=== PATIENT | female | born 1965 | race African-American/Black ===

== ENCOUNTER 2018-12-17 22:42 | Emergency (ER) | payer OTHER, MEDICARE ==
[2018-12-17 23:29] LABS: Absolute Lymphocytes (CBC) 2.1 K/uL (0.7-4.9); Absolute Monocytes 0.9 K/uL (0.1-1.3); Absolute Neutrophil 7.2 K/uL (1.8-8.0); Basophils % 0.6 % (0-1.3); Eosinophils % 0.5 % (0-4.4); Hematocrit 42.2 % (36.0-45.0); Lymphocytes % 20.2 % (15.3-44.8); MPV 11.4 fL (7.6-11.3); Monocytes % 8.4 % (3.3-12.3); RBC Red Blood Cell Count 4.76 M/uL (3.86-4.86)
[2018-12-17 23:54] LABS: Potassium 4.1 mmol/L (3.5-5.1)
[2018-12-17 23:54] LABS: Urine Blood TRACE (NEG); Urine Glucose NEGATIVE (NEG); Urine Protein 2+ (NEG); Urine pH 5.5 (5.0-7.0)
[2018-12-18 00:13] LABS: Urine Bacteria >50 /HPF (<20); Urine Culture Reflex Order NOT NEEDED; Urine RBC <5 /HPF (NONE SEEN)
[2018-12-18] MEDS ORDERED: KETOROLAC 30 MG/ML INJ ONE (00:13)
[2018-12-18] MEDS ORDERED: NA CHLORIDE 0.9% 1,000 ML ONE (00:13)
--- NOTE | 2018-12-18 00:56 | ER ---
Nurse's Notes [facility] Name: Kecia Moreno Age: 53 yrs Sex: Female : 1965 Arrival Date: 12/17/2018 Time: 22:45 Bed 7 Private MD: Diagnosis: Urinary tract infection, site not specified Presentation: 12/17 22:59 Presenting complaint: Patient states: lower abd cramps since 0400. pt denies N/V/D. ak1 Transition of care: patient was not received from another setting of care. Onset of symptoms was December 17, 2018. Risk Assessment: Do you want to hurt yourself or someone else? Patient reports no desire to harm self or others. Initial Sepsis Screen: Does the patient meet any 2 criteria? No. Patient's initial sepsis screen is negative. Does the patient have a suspected source of infection? No. Patient's initial sepsis screen is negative. Care prior to arrival: None. 22:59 Method Of Arrival: Ambulatory ak1 22:59 Acuity: TAMIKA 3 ak1 Triage Assessment: 23:01 General: Appears in no apparent distress. Behavior is calm, cooperative. Pain: ak1 Complains of pain in suprapubic area, right lower quadrant and left lower quadrant. EENT: No signs and/or symptoms were reported regarding the EENT system. Neuro: No deficits noted. Cardiovascular: No deficits noted. Respiratory: No deficits noted. GI: Abdomen is obese, Bowel sounds present X 4 quads. Reports lower abdominal pain, cramping, Patient currently denies diarrhea, nausea, vomiting. : No signs and/or symptoms were reported regarding the genitourinary system. Derm: No signs and/or symptoms reported regarding the dermatologic system. Musculoskeletal: No signs and/or symptoms reported regarding the musculoskeletal system. 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 - Social history:: Smoking status: Patient/guardian denies using tobacco. - Ebola Screening: : No symptoms or risks identified at this time. Screenin:03 Abuse screen: Denies threats or abuse. Denies injuries from another. Nutritional ak1 screening: No deficits noted. Tuberculosis screening: No symptoms or risk factors identified. Fall Risk None identified. Assessment: 23:03 GI: Abd is soft and non tender. ak1 23:04 Reassessment: Patient appears in no apparent distress at this time. No changes from ak1 previously documented assessment. Patient is alert, oriented x 3, equal unlabored respirations, skin warm/dry/pink. see triage assessment. 12/18 00:41 Reassessment: Patient appears in no apparent distress at this time. No changes from ak1 previously documented assessment. Patient and/or family updated on plan of care and expected duration. Pain level reassessed. Patient is alert, oriented x 3, equal unlabored respirations, skin warm/dry/pink. Vital Signs: 12/17 22:58 BP 135 / 107; Pulse 99; Resp 18; Temp 98.9(O); Pulse Ox 100% on R/A; Weight 170.1 kg ak1 (R); Height 5 ft. 5 in. (165.10 cm) (R); Pain 9/10; 12/18 00:02 BP 116 / 82; Pulse 95; Resp 18; Temp 98.8; Pulse Ox 100% on R/A; ak1 00:41 BP 111 / 76; Pulse 86; Resp 18; Pulse Ox 100% on R/A; ak1 01:25 BP 108 / 73; Pulse 90; Pulse Ox 100% on R/A; ak1 12/17 22:58 Body Mass Index 62.40 (170.10 kg, 165.10 cm) ak1 ED Course: 12/17 22:45 Patient arrived in ED. ag3 22:46 Patricia Tony [facility]-C [facility] kb 22:46 Adrien Hill MD is Attending Physician. kb 22:47 Karishma Clarke, [place] is Primary Nurse. ak1 22:58 Arm band placed on Patient placed in an exam room, on a stretcher, on pulse oximetry, ak1 Patient notified of wait time. 23:00 Triage completed. ak1 23:04 Patient has correct armband on for positive identification. Bed in low position. Call ak1 light in reach. Side rails up X 1. Pulse ox on. NIBP on. Door closed. Lights dimmed. 12/18 00:02 Inserted saline lock: 24 gauge in right hand, using aseptic technique. ak1 00:11 Basic Metabolic Panel Sent. ak1 00:11 CBC with Diff Sent. ak1 00:57 No provider procedures requiring assistance completed. ak1 01:06 Awaiting: IV fluids to complete infusion. ak1 01:50 IV discontinued, intact, bleeding controlled, No redness/swelling at site. Pressure ak1 dressing applied. Administered Medications: 00:10 Drug: NS 0.9% 1000 ml Route: IV; Rate: 1000 ml; Site: right hand; ak1 01:49 Follow up: IV Status: Completed infusion ak1 00:11 Drug: TORadol 30 mg Route: IVP; Site: right hand; ak1 01:06 Follow up: Response: No adverse reaction ak1 01:50 Drug: Pyridium 100 mg Route: PO; ak1 01:50 Follow up: Response: No adverse reaction ak1 Outcome: 00:55 Discharge ordered by . kb 00:57 Condition: stable ak1 01:06 Discharge instructions given to patient, Instructed on discharge instructions, follow ak1 up and referral plans. no drinking with medication, no driving heavy equipment, medication usage, safe sex practices, Demonstrated understanding of instructions, follow-up care, medications, Prescriptions given X 2. 01:50 Discharged to home ambulatory. ak1 01:51 Patient left the ED. ak1 Signatures: Patricia Tony FNP-C FNP-Ckb Krenek, Amber RN RN ak1 Luz Soriano ag3
--- NOTE | 2018-12-18 00:56 | EDPHYS ---
Physician Documentation [facility] Name: Kecia Moreno Age: 53 yrs Sex: Female : 1965 Arrival Date: 12/17/2018 Time: 22:45 Bed 7 Private MD: ED Physician Adrien Hill HPI: 12/18 00:54 This 53 yrs old Black Female presents to ER via Ambulatory with complaints of Abdominal kb Pain. 00:54 The patient presents with abdominal pain in the lower abdomen. The patient has not kb experienced similar symptoms in the past. The patient has not recently seen a physician. 00:54 Onset: The symptoms/episode began/occurred yesterday, at 04:00. The symptoms do not kb radiate. Associated signs and symptoms: none. The symptoms are described as crampy. Modifying factors: The symptoms are alleviated by nothing, the symptoms are aggravated by nothing. Severity of pain: At its worst the pain was mild moderate in the emergency department the pain is unchanged. 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 - Social history:: Smoking status: Patient/guardian denies using tobacco. - Ebola Screening: : No symptoms or risks identified at this time. ROS: 12/18 00:19 Constitutional: Negative for fever, chills, and weight loss, Cardiovascular: Negative kb for chest pain, palpitations, and edema, Respiratory: Negative for shortness of breath, cough, wheezing, and pleuritic chest pain, Back: Negative for injury and pain, MS/Extremity: Negative for injury and deformity, Skin: Negative for injury, rash, and discoloration, Neuro: Negative for headache, weakness, numbness, tingling, and seizure. Abdomen/GI: Positive for abdominal pain. Exam: 00:22 Constitutional: This is a well developed, well nourished patient who is awake, alert, kb and in no acute distress. Head/Face: Normocephalic, atraumatic. Neck: Trachea midline, no thyromegaly or masses palpated, and no cervical lymphadenopathy. Supple, full range of motion without nuchal rigidity, or vertebral point tenderness. No Meningismus. Chest/axilla: Normal chest wall appearance and motion. Nontender with no deformity. No lesions are appreciated. Cardiovascular: Regular rate and rhythm with a normal S1 and S2. No gallops, murmurs, or rubs. Normal PMI, no JVD. No pulse deficits. Respiratory: Lungs have equal breath sounds bilaterally, clear to auscultation and percussion. No rales, rhonchi or wheezes noted. No increased work of breathing, no retractions or nasal flaring. Abdomen/GI: Soft, non-tender, with normal bowel sounds. No distension or tympany. No guarding or rebound. No evidence of tenderness throughout. Back: No spinal tenderness. No costovertebral tenderness. Full range of motion. Skin: Warm, dry with normal turgor. Normal color with no rashes, no lesions, and no evidence of cellulitis. MS/ Extremity: Pulses equal, no cyanosis. Neurovascular intact. Full, normal range of motion. Neuro: Awake and alert, GCS 15, oriented to person, place, time, and situation. Cranial nerves II-XII grossly intact. Motor strength 5/5 in all extremities. Sensory grossly intact. Cerebellar exam normal. Normal gait. Vital Signs: 12/17 22:58 BP 135 / 107; Pulse 99; Resp 18; Temp 98.9(O); Pulse Ox 100% on R/A; Weight 170.1 kg ak1 (R); Height 5 ft. 5 in. (165.10 cm) (R); Pain 9/10; 12/18 00:02 BP 116 / 82; Pulse 95; Resp 18; Temp 98.8; Pulse Ox 100% on R/A; ak1 00:41 BP 111 / 76; Pulse 86; Resp 18; Pulse Ox 100% on R/A; ak1 01:25 BP 108 / 73; Pulse 90; Pulse Ox 100% on R/A; ak1 12/17 22:58 Body Mass Index 62.40 (170.10 kg, 165.10 cm) ak1 MDM: 12/17 22:47 Patient medically screened. kb 12/18 00:18 Data reviewed: vital signs, nurses notes. Data interpreted: Pulse oximetry: on room air kb is 100 %. Interpretation: normal. Counseling: I had a detailed discussion with the patient and/or guardian regarding: the historical points, exam findings, and any diagnostic results supporting the discharge/admit diagnosis, lab results, the need for outpatient follow up, a family practitioner, to return to the emergency department if symptoms worsen or persist or if there are any questions or concerns that arise at home. Refusal of service: The patient/guardian displays adequate decision making capability and despite a detailed discussion of alternatives, benefits, risks, and consequences refuses: CT Scan. 12/17 22:55 Order name: Basic Metabolic Panel kb 12/17 22:55 Order name: CBC with Diff kb 12/17 22:55 Order name: Basic Metabolic Panel; Complete Time: 23:55 EDMS 12/17 22:55 Order name: CBC with Automated Diff; Complete Time: 23:52 EDMS 12/17 23:37 Order name: Urine Microscopic Only; Complete Time: 00:14 kb 12/17 23:43 Order name: Urine Dipstick--Ancillary (enter results); Complete Time: 23:55 mw2 12/17 22:55 Order name: IV Saline Lock; Complete Time: 00:02 kb 12/17 22:55 Order name: Labs collected and sent; Complete Time: 23:14 kb 12/17 23:37 Order name: Urine Dipstick-Ancillary (obtain specimen); Complete Time: 23:42 kb Administered Medications: 00:10 Drug: NS 0.9% 1000 ml Route: IV; Rate: 1000 ml; Site: right hand; ak1 01:49 Follow up: IV Status: Completed infusion ak1 00:11 Drug: TORadol 30 mg Route: IVP; Site: right hand; ak1 01:06 Follow up: Response: No adverse reaction ak1 01:50 Drug: Pyridium 100 mg Route: PO; ak1 01:50 Follow up: Response: No adverse reaction ak1 Disposition: 12/18/18 00:55 Discharged to Home. Impression: Urinary tract infection, site not specified. - Condition is Stable. - Discharge Instructions: Urinary Tract Infection, Adult, [id number]. - Prescriptions for Macrobid 100 mg Oral Capsule - take 1 capsule by ORAL route every 12 hours for 7 days; 14 capsule. Diclofenac Sodium 75 mg Oral Tablet, Delayed Release (E.C.) - take 1 tablet by ORAL route 2 times per day As needed; 30 tablet. - Medication Reconciliation Form, Thank You Letter, Antibiotic Education, Prescription Opioid Use form. - Follow up: Emergency Department; When: As needed; Reason: Worsening of condition. Follow up: Private Physician; When: 2 - 3 days; Reason: Recheck today's complaints, Continuance of care, Re-evaluation by your physician. Addendum: 12/25/2018 03:27 Co-signature as Attending Physician, Adrien Hill MD. g s Signatures: Dispatcher [employer] EDMS Patricia Tony FNP-C FNP-Karishma Quintana RN RN ak1 Adrien Hill MD MD gs Corrections: (The following items were deleted from the chart) 12/18 00:22 00:22 Constitutional: This is a well developed, well nourished patient who is awake, kb alert, and in no acute distress. Head/Face: Normocephalic, atraumatic. Neck: Trachea midline, no thyromegaly or masses palpated, and no cervical lymphadenopathy. Supple, full range of motion without nuchal rigidity, or vertebral point tenderness. No Meningismus. Chest/axilla: Normal chest wall appearance and motion. Nontender with no deformity. No lesions are appreciated. Cardiovascular: Regular rate and rhythm with a normal S1 and S2. No gallops, murmurs, or rubs. Normal PMI, no JVD. No pulse deficits. Respiratory: Lungs have equal breath sounds bilaterally, clear to auscultation and percussion. No rales, rhonchi or wheezes noted. No increased work of breathing, no retractions or nasal flaring. Abdomen/GI: Soft, non-tender, with normal bowel sounds. No distension or tympany. No guarding or rebound. No evidence of tenderness throughout. Back: No spinal tenderness. No costovertebral tenderness. Full range of motion. Skin: Warm, dry with normal turgor. Normal color with no rashes, no lesions, and no evidence of cellulitis. MS/ Extremity: Pulses equal, no cyanosis. Neurovascular intact. Full, normal range of motion. Neuro: Awake and alert, GCS 15, oriented to person, place, time, and situation. Cranial nerves II-XII grossly intact. Motor strength 5/5 in all extremities. Sensory grossly intact. Cerebellar exam normal. Normal gait. kb 01:51 00:55 12/18/2018 00:55 Discharged to Home. Impression: Urinary tract infection, site ak1 not specified. Condition is Stable. Forms are Medication Reconciliation Form, Thank You Letter, Antibiotic Education, Prescription Opioid Use. Follow up: Emergency Department; When: As needed; Reason: Worsening of condition. Follow up: Private Physician; When: 2 - 3 days; Reason: Recheck today's complaints, Continuance of care, Re-evaluation by your physician. kb
[2018-12-18] MEDS ORDERED: PHENAZOPYRIDINE 100MG TAB PO ONE (01:53)
[2018-12-18 03:04] VITALS: O2SAT 100
[2018-12-18 03:05] VITALS: TEMP 98.8
[2018-12-18 03:07] VITALS: BP 108/73
== END 2018-12-18 01:51 | disposition home or self-care (01) ==
LOC: ER 22:42
DX: N39.0 Urinary tract infection, site not specified (principal); Z88.6 Allergy status to analgesic agent; I10 Essential (primary) hypertension
CPT/HCPCS: 36415; 80048; 85025; J7030; 81003; 81015

== ENCOUNTER 2019-03-27 20:55 | Observation (INO) | payer MEDICARE, OTHER ==
[2019-03-27] MEDS ORDERED: METRONIDAZOLE 500mg IVPB 500 MG/100 ML BAG IV ONE (21:42)
[2019-03-27] MEDS ORDERED: CIPROFLOXACIN 400mg IV 400 MG/200 ML BAG IV ONE (21:42)
[2019-03-27] MEDS ORDERED: NA CHLORIDE 0.9% 1,000 ML ONE (21:42)
[2019-03-27 22:15] LABS: Absolute Lymphocytes (CBC) 2.7 K/uL (0.7-4.9); Absolute Monocytes 0.7 K/uL (0.1-1.3); Absolute Neutrophil 4.5 K/uL (1.8-8.0); Basophils % 0.5 % (0-1.3); Eosinophils % 1.3 % (0-4.4); Hematocrit 39.2 % (36.0-45.0); Lymphocytes % 33.2 % (15.3-44.8); MPV 10.9 fL (7.6-11.3); Monocytes % 8.5 % (3.3-12.3); RBC Red Blood Cell Count 4.38 M/uL (3.86-4.86)
[2019-03-27 22:16] LABS: Protime INR 1.05
[2019-03-27 22:33] LABS: ALT/SGPT 18 U/L (12-78); AST/SGOT 10 U/L (15-37); Albumin 3.5 g/dL (3.4-5.0); Alkaline Phosphatase 93 U/L (45-117); BUN Blood Urea Nitrogen 12 mg/dL (7-18); Bicarbonate 27 mmol/L (21-32); Bilirubin Direct 0.2 mg/dL (0-0.2); Bilirubin Total 0.6 mg/dL (0.2-1.0); Glucose Level 91 mg/dL (74-106); Lipase 89 U/L (73-393); Magnesium 1.9 mg/dL (1.8-2.4); NT PRO-BNP 9 pg/mL (<125); Potassium 3.9 mmol/L (3.5-5.1); Protein, Total 7.6 g/dL (6.4-8.2); Sodium Level 141 mmol/L (136-145); Troponin (Emerg Dept Use Only) < 0.02 ng/mL (0.0-0.045)
--- NOTE | 2019-03-27 23:05 | RAD REPORT ---
EXAM DESCRIPTION: RAD - Chest Single View - 03/27/2019 9:38 pm CLINICAL HISTORY: ABDOMINAL DISTENTION Chest pain. COMPARISON: CHEST SINGLE VIEW dated 02/11/2012 FINDINGS: Portable technique limits examination quality. The lungs are underinflated resulting in vascular crowding. The heart is mildly enlarged in size. No displaced fractures. IMPRESSION: Mild underinflated lungs.
[2019-03-27] MEDS ORDERED: LORazepam 2 MG/ML VIAL ONE (23:48)
[2019-03-28 00:11] LABS: Urine Blood TRACE (NEG); Urine Glucose NEGATIVE (NEG); Urine Protein NEGATIVE (NEG); Urine pH 5.5 (5.0-7.0)
--- NOTE | 2019-03-28 00:48 | ER ---
Nurse's Notes [facility] Name: Kecia Moreno Age: 53 yrs Sex: Female : 1965 Arrival Date: 03/27/2019 Time: 20:57 Bed 18 Private MD: Diagnosis: Diverticular disease of intestine;Diverticulitis of large intestine without perforation or abscess without bleeding;Urinary tract infection, site not specified;Abdominal tenderness Presentation: 03/27 21:03 Presenting complaint: Patient states: Lower abd pain and chills since thursday. la1 Transition of care: patient was not received from another setting of care. Onset of symptoms was March 27, 2019. Risk Assessment: Do you want to hurt yourself or someone else? Patient reports no desire to harm self or others. Initial Sepsis Screen: Does the patient meet any 2 criteria? No. Patient's initial sepsis screen is negative. Does the patient have a suspected source of infection? No. Patient's initial sepsis screen is negative. Care prior to arrival: None. 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 - Social history:: Smoking status: Patient/guardian denies using tobacco. - Ebola Screening: : No symptoms or risks identified at this time. - Family history:: not pertinent. Screenin:05 Abuse screen: Denies threats or abuse. Denies injuries from another. Nutritional rr5 screening: No deficits noted. Tuberculosis screening: No symptoms or risk factors identified. Fall Risk IV access (20 points). Total Feliz Fall Scale indicates No Risk (0-24 pts). Assessment: 21:30 General: Appears in no apparent distress. uncomfortable, Behavior is calm, cooperative, rr5 agitated. Pain: Complains of pain in abdomen Pain does not radiate. Pain currently is 8 out of 10 on a pain scale. Quality of pain is described as crampy, Pain began gradually, Is intermittent. 21:30 Neuro: Level of Consciousness is awake, alert, obeys commands, Oriented to person, rr5 place, time, situation, Appropriate for age. Cardiovascular: Capillary refill < 3 seconds Patient's skin is warm and dry. Respiratory: Airway is patent Respiratory effort is even, unlabored, Respiratory pattern is regular, symmetrical. GI: Abdomen is obese, Bowel sounds present X 4 quads. Abdomen is tender to palpation. : No signs and/or symptoms were reported regarding the genitourinary system. EENT: No signs and/or symptoms were reported regarding the EENT system. Derm: Skin is intact, Skin temperature is warm. Musculoskeletal: Capillary refill < 3 seconds, Range of motion: intact in all extremities. 22:20 Reassessment: Patient appears in no apparent distress at this time. oral contrast rr5 consumed CT staff aware. 23:40 Reassessment: patient complaints of claustrophobia when in a CT machine, requested to rr5 have something to make her relax. ED provider aware with order made and carried out. went to CT scan via stretcher. 03/28 00:15 Reassessment: back from CT scan placed on bed comfortably. rr5 00:55 Reassessment: Patient appears in no apparent distress at this time. Patient is alert, rr5 oriented x 3, equal unlabored respirations, skin warm/dry/pink. awaiting for result. no complaints made. 01:15 Reassessment: Patient appears in no apparent distress at this time. Patient is alert, rr5 oriented x 3, equal unlabored respirations, skin warm/dry/pink. asleep on bed, informed the plan of admission, the patient agreed. 02:00 Reassessment: Patient appears in no apparent distress at this time. Patient is alert, rr5 oriented x 3, equal unlabored respirations, skin warm/dry/pink. asleep on bed comfortably. 03:30 Reassessment: Patient appears in no apparent distress at this time. Patient is alert, rr5 oriented x 3, equal unlabored respirations, skin warm/dry/pink. no complaints made. transferred to medical surgical department. Vital Signs: 03/27 21:04 BP 144 / 100; Pulse 96; Resp 16; Temp 98.7; Pulse Ox 98% on R/A; Weight 131.54 kg; la1 Height 5 ft. 5 in. (165.10 cm); Pain 8/10; 22:00 BP 133 / 95; Pulse 83; Resp 14; Pulse Ox 99% ; rr5 23:00 BP 121 / 70; Pulse 89; Resp 17; Pulse Ox 99% ; rr5 23:40 BP 121 / 75; Pulse 80; Resp 17; Pulse Ox 99% ; rr5 03/28 00:00 BP 113 / 65; Pulse 85; Resp 19; Pulse Ox 100% ; rr5 01:05 BP 116 / 69; Pulse 72; Resp 75; Pulse Ox 100% ; rr5 01:06 Weight 131.5 kg; rr5 02:00 BP 113 / 65; Pulse 88; Resp 15; Pulse Ox 98% on R/A; rr5 02:45 BP 115 / 68; Pulse 90; Resp 18; Temp 98.7; Pulse Ox 98% on R/A; Pain 2/10; fc 01:06 Body Mass Index 48.24 (131.50 kg, 165.10 cm) rr5 ED Course: 03/27 20:57 Patient arrived in ED. am2 21:03 Triage completed. la1 21:04 Arm band placed on right wrist. la1 21:05 Lm Shannon MD is Attending Physician. micaela 21:27 Erasmo Leslie RN is Primary Nurse. rr5 21:38 XRAY Chest (1 view) In Process Unspecified. EDMS 22:00 Patient has correct armband on for positive identification. Placed in gown. Bed in low rr5 position. Call light in reach. Side rails up X2. 22:00 Pulse ox on. NIBP on. rr5 22:00 Inserted saline lock: 20 gauge in left forearm, using aseptic technique. Blood rr5 collected. 03/28 00:14 CT Abd/Pelvis - W/Contrast In Process Unspecified. EDMS 00:45 Alireza Haney MD is Hospitalizing Provider. micaela 02:46 No provider procedures requiring assistance completed. Patient admitted, IV remains in fc place. Administered Medications: 03/27 22:00 Drug: NS 0.9% 1000 ml Route: IV; Rate: 1 bolus; Site: left forearm; rr5 23:10 Follow up: Response: No adverse reaction; IV Status: Completed infusion; IV Intake: rr5 1000ml 22:05 Drug: Flagyl 500 mg Volume: 100 ml; Route: IVPB; Rate: 200 ml/hr; Infused Over: 30 rr5 mins; Site: left forearm; 22:42 Follow up: Response: No adverse reaction; IV Status: Completed infusion; IV Intake: rr5 100ml 22:42 Drug: Cipro 400 mg Volume: 200 ml; Route: IVPB; Infused Over: 60 mins; Site: left rr5 forearm; 23:40 Follow up: BP 121 / 75; Pulse 80 bpm; Resp 17 bpm; Pulse Ox 99% ; Response: No adverse rr5 reaction; IV Status: Completed infusion; IV Intake: 200ml 23:40 Drug: Ativan 1 mg Route: IVP; Site: left forearm; rr5 03/28 00:40 Follow up: Response: No adverse reaction rr5 01:00 Drug: Rocephin - (cefTRIAXone) 1 grams Route: IVPB; Infused Over: 30 mins; Site: left rr5 forearm; 01:30 Follow up: Response: No adverse reaction; IV Status: Completed infusion rr5 02:38 Drug: Zofran 4 mg Route: IVP; Site: left forearm; rr5 03:31 Follow up: Response: No adverse reaction; Nausea is decreased fc 02:40 Drug: morphine 4 mg Route: IVP; Site: left forearm; rr5 03:31 Follow up: Response: No adverse reaction; Pain is decreased fc Intake: 03/27 22:42 IV: 100ml; Total: 100ml. rr5 23:10 IV: 1000ml; Total: 1100ml. rr5 23:40 IV: 200ml; Total: 1300ml. rr5 Outcome: 03/28 00:47 Decision to Hospitalize by Provider. micaela 02:48 Admitted to Med/surg accompanied by tech, via wheelchair, room 215, with chart, Report fc called to Tarsha PORTER 02:48 Condition: good 02:48 Discharge instructions given to patient, Instructed on the need for admit, Demonstrated understanding of instructions. 03:32 Patient left the ED. fc Signatures: Dispatcher [employer] Lm Aly MD MD cha Chretien, Felicia RN [place] Costa Howell RN RN Maira Sheppard Raymond RN RN rr5 Corrections: (The following items were deleted from the chart) 03:17 02:58 Home Meds: amlodipine 10 mg tab 1 tab once daily for Hypertension; rr5 rr5 03:17 02:58 Home Meds: lisinopril 40 mg Oral tab 1 tab once daily for Hypertension; rr5 rr5 06:50 02:30 Reassessment: Patient appears in no apparent distress at this time. Patient is rr5 alert, oriented x 3, equal unlabored respirations, skin warm/dry/pink. no complaints made. transferred to medical surgical department rr5
--- NOTE | 2019-03-28 00:48 | EDPHYS ---
Physician Documentation [facility] Name: Kecia Moreno Age: 53 yrs Sex: Female : 1965 Arrival Date: 03/27/2019 Time: 20:57 Bed 18 Private MD: ED Physician Lm Shannon HPI: 03/27 21:15 This 53 yrs old Black Female presents to ER via Ambulatory with complaints of Abdominal micaela Pain. 21:15 The patient presents with abdominal pain in the lower abdomen, abdominal distention in micaela the lower abdomen. Onset: The symptoms/episode began/occurred 3 day(s) ago. The symptoms do not radiate. Associated signs and symptoms: none. Modifying factors: The symptoms are alleviated by nothing, the symptoms are aggravated by movement, pressure. Severity of pain: At its worst the pain was moderate in the emergency department the pain is unchanged. The patient has not experienced similar symptoms in the past. 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 - Social history:: Smoking status: Patient/guardian denies using tobacco. - Ebola Screening: : No symptoms or risks identified at this time. - Family history:: not pertinent. ROS: 21:15 Constitutional: Negative for fever, chills, and weight loss, Eyes: Negative for injury, micaela pain, redness, and discharge, ENT: Negative for injury, pain, and discharge, Neck: Negative for injury, pain, and swelling, Cardiovascular: Negative for chest pain, palpitations, and edema, Respiratory: Negative for shortness of breath, cough, wheezing, and pleuritic chest pain, Back: Negative for injury and pain, : Negative for injury, bleeding, discharge, and swelling, MS/Extremity: Negative for injury and deformity, Skin: Negative for injury, rash, and discoloration, Neuro: Negative for headache, weakness, numbness, tingling, and seizure, Psych: Negative for depression, anxiety, suicide ideation, homicidal ideation, and hallucinations, Allergy/Immunology: Negative for hives, rash, and allergies, Endocrine: Negative for neck swelling, polydipsia, polyuria, polyphagia, and marked weight changes, Hematologic/Lymphatic: Negative for swollen nodes, abnormal bleeding, and unusual bruising. 21:15 Abdomen/GI: Positive for abdominal pain, of the right lower quadrant and left lower quadrant. Exam: 21:15 Constitutional: This is a well developed, well nourished patient who is awake, alert, micaela and in no acute distress. Head/Face: Normocephalic, atraumatic. Eyes: Pupils equal round and reactive to light, extra-ocular motions intact. Lids and lashes normal. Conjunctiva and sclera are non-icteric and not injected. Cornea within normal limits. Periorbital areas with no swelling, redness, or edema. ENT: Nares patent. No nasal discharge, no septal abnormalities noted. Tympanic membranes are normal and external auditory canals are clear. Oropharynx with no redness, swelling, or masses, exudates, or evidence of obstruction, uvula midline. Mucous membranes moist. Neck: Trachea midline, no thyromegaly or masses palpated, and no cervical lymphadenopathy. Supple, full range of motion without nuchal rigidity, or vertebral point tenderness. No Meningismus. Chest/axilla: Normal chest wall appearance and motion. Nontender with no deformity. No lesions are appreciated. Cardiovascular: Regular rate and rhythm with a normal S1 and S2. No gallops, murmurs, or rubs. Normal PMI, no JVD. No pulse deficits. Respiratory: Lungs have equal breath sounds bilaterally, clear to auscultation and percussion. No rales, rhonchi or wheezes noted. No increased work of breathing, no retractions or nasal flaring. Back: No spinal tenderness. No costovertebral tenderness. Full range of motion. Skin: Warm, dry with normal turgor. Normal color with no rashes, no lesions, and no evidence of cellulitis. MS/ Extremity: Pulses equal, no cyanosis. Neurovascular intact. Full, normal range of motion. Neuro: Awake and alert, GCS 15, oriented to person, place, time, and situation. Cranial nerves II-XII grossly intact. Motor strength 5/5 in all extremities. Sensory grossly intact. Cerebellar exam normal. Normal gait. Psych: Awake, alert, with orientation to person, place and time. Behavior, mood, and affect are within normal limits. 21:15 Abdomen/GI: Inspection: abdomen appears normal, Bowel sounds: normal, Palpation: mild abdominal tenderness, moderate abdominal tenderness, in the suprapubic area, right lower quadrant and left lower quadrant, Liver: no appreciated palpable abnormalities, Hernia: not appreciated. Vital Signs: 21:04 BP 144 / 100; Pulse 96; Resp 16; Temp 98.7; Pulse Ox 98% on R/A; Weight 131.54 kg; la1 Height 5 ft. 5 in. (165.10 cm); Pain 8/10; 22:00 BP 133 / 95; Pulse 83; Resp 14; Pulse Ox 99% ; rr5 23:00 BP 121 / 70; Pulse 89; Resp 17; Pulse Ox 99% ; rr5 23:40 BP 121 / 75; Pulse 80; Resp 17; Pulse Ox 99% ; rr5 03/28 00:00 BP 113 / 65; Pulse 85; Resp 19; Pulse Ox 100% ; rr5 01:05 BP 116 / 69; Pulse 72; Resp 75; Pulse Ox 100% ; rr5 01:06 Weight 131.5 kg; rr5 02:00 BP 113 / 65; Pulse 88; Resp 15; Pulse Ox 98% on R/A; rr5 02:45 BP 115 / 68; Pulse 90; Resp 18; Temp 98.7; Pulse Ox 98% on R/A; Pain 2/10; fc 01:06 Body Mass Index 48.24 (131.50 kg, 165.10 cm) rr5 MDM: 03/27 21:05 Patient medically screened. [facility] 21:17 Data reviewed: vital signs, nurses notes, lab test result(s), EKG, radiologic studies, [facility] CT scan, plain films. 03/27 21:14 Order name: Basic Metabolic Panel; Complete Time: 22:57 [facility] 03/27 21:14 Order name: CBC with Diff; Complete Time: 22:57 [facility] 03/27 21:14 Order name: LFT's; Complete Time: 22:57 [facility] 03/27 21:14 Order name: Magnesium; Complete Time: 22:57 [facility] 03/27 21:14 Order name: NT PRO-BNP; Complete Time: 22:57 [facility] 03/27 21:14 Order name: PT-INR; Complete Time: 22:57 [facility] 03/27 21:14 Order name: Troponin (emerg Dept Use Only); Complete Time: 22:57 [facility] 03/27 21:14 Order name: Lipase; Complete Time: 22:57 [facility] 03/27 21:14 Order name: Urine Culture [facility] 03/27 21:54 Order name: Urine Dipstick--Ancillary (enter results); Complete Time: 00:41 ar 03/28 01:43 Order name: Comprehensive Metabolic Panel [facility] 03/28 01:43 Order name: Comprehensive Metabolic Panel [facility] 03/28 01:44 Order name: CBC with Automated Diff [facility] 03/28 01:44 Order name: CBC with Automated Diff [facility] 03/27 21:14 Order name: XRAY Chest (1 view); Complete Time: 00:41 [facility] 03/27 21:14 Order name: EKG; Complete Time: 21:15 [facility] 03/27 21:14 Order name: Cardiac monitoring; Complete Time: 21:19 [facility] 03/27 21:14 Order name: EKG - Nurse/Tech; Complete Time: 22:13 [facility] 03/27 21:14 Order name: IV Saline Lock; Complete Time: 22:13 [facility] 03/27 21:14 Order name: Labs collected and sent; Complete Time: 22:13 [facility] 03/27 21:14 Order name: CT Abd/Pelvis - W/Contrast [facility] 03/28 01:43 Order name: CONS Pharmacy Consult [facility] 03/28 01:43 Order name: NPO [facility] 03/27 21:14 Order name: O2 Per Protocol; Complete Time: 21:19 [facility] 03/27 21:14 Order name: O2 Sat Monitoring; Complete Time: 21:19 [facility] 03/27 21:14 Order name: Urine Dipstick-Ancillary (obtain specimen); Complete Time: 22:13 [facility] Administered Medications: 22:00 Drug: NS 0.9% 1000 ml Route: IV; Rate: 1 bolus; Site: left forearm; rr5 23:10 Follow up: Response: No adverse reaction; IV Status: Completed infusion; IV Intake: rr5 1000ml 22:05 Drug: Flagyl 500 mg Volume: 100 ml; Route: IVPB; Rate: 200 ml/hr; Infused Over: 30 rr5 mins; Site: left forearm; 22:42 Follow up: Response: No adverse reaction; IV Status: Completed infusion; IV Intake: rr5 100ml 22:42 Drug: Cipro 400 mg Volume: 200 ml; Route: IVPB; Infused Over: 60 mins; Site: left rr5 forearm; 23:40 Follow up: BP 121 / 75; Pulse 80 bpm; Resp 17 bpm; Pulse Ox 99% ; Response: No adverse rr5 reaction; IV Status: Completed infusion; IV Intake: 200ml 23:40 Drug: Ativan 1 mg Route: IVP; Site: left forearm; rr5 03/28 00:40 Follow up: Response: No adverse reaction rr5 01:00 Drug: Rocephin - (cefTRIAXone) 1 grams Route: IVPB; Infused Over: 30 mins; Site: left rr5 forearm; 01:30 Follow up: Response: No adverse reaction; IV Status: Completed infusion rr5 02:38 Drug: Zofran 4 mg Route: IVP; Site: left forearm; rr5 03:31 Follow up: Response: No adverse reaction; Nausea is decreased fc 02:40 Drug: morphine 4 mg Route: IVP; Site: left forearm; rr5 03:31 Follow up: Response: No adverse reaction; Pain is decreased fc Disposition: 03/28/19 00:47 Hospitalization ordered by Alireza Haney for Inpatient Admission. Preliminary diagnosis are Diverticular disease of intestine, Diverticulitis of large intestine without perforation or abscess without bleeding, Urinary tract infection, site not specified, Abdominal tenderness. - Bed requested for Telemetry/MedSurg (Inpatient). - Status is Inpatient Admission. fc - Condition is Fair. - Problem is new. - Symptoms have improved. UTI on Admission? Yes Signatures: Dispatcher [employer] EDGA Marielos Lutz RN RN mw Anderson, Corey, MD MD cha Chretien, Felicia RN Costa Williamson RN RN la1 Erasmo Leslie RN RN rr5 Corrections: (The following items were deleted from the chart) 02:20 00:47 Hospitalization Ordered by Alireza Haney MD for Inpatient Admission. Preliminary diagnosis is Diverticular disease of intestine; Diverticulitis of large intestine without perforation or abscess without bleeding; Urinary tract infection, site not specified; Abdominal tenderness. Bed requested for Telemetry/MedSurg (Inpatient). Status is Inpatient Admission. Condition is Fair. Problem is new. Symptoms have improved. UTI on Admission? Yes. micaela 03:17 02:58 Home Meds: amlodipine 10 mg tab 1 tab once daily for Hypertension; rr5 rr5 03:17 02:58 Home Meds: lisinopril 40 mg Oral tab 1 tab once daily for Hypertension; rr5 rr5 03:32 02:20 03/28/2019 00:47 Hospitalization Ordered by Alireza Haney MD for Inpatient fc Admission. Preliminary diagnosis is Diverticular disease of intestine; Diverticulitis of large intestine without perforation or abscess without bleeding; Urinary tract infection, site not specified; Abdominal tenderness. Bed requested for Telemetry/MedSurg (Inpatient). Status is Inpatient Admission. Condition is Fair. Problem is new. Symptoms have improved. UTI on Admission? Yes. mw
[2019-03-28] MEDS ORDERED: CEFTRIAXONE/SWI 1gm 1 GM/10 ML SYR ONE (01:00)
[2019-03-28] MEDS ORDERED: ACETAMINOPHEN 500 MG TAB PO PRN (01:40)
[2019-03-28] MEDS ORDERED: ONDANSETRON 4 MG/2 ML VIAL ONE (02:49)
[2019-03-28] MEDS ORDERED: MORPHINE 4 MG/ML SYR ONE (02:49)
[2019-03-28 04:08] VITALS: O2SAT 95; BMI 48.2
[2019-03-28] MEDS: NA CHLORIDE 0.9% 1,000 ML IV SCH ×3 (04:14→16:36)
--- NOTE | 2019-03-28 07:06 | EKG ---
Test Date: 2019-03-27 Test Time: 21:26:59 Library Technician: RICKI MEASUREMENT RESULTS: Intervals: Rate: 82 WY: 202 QRSD: 84 QT: 370 QTc: 432 [place]: P: 52 WY: 202 QRS: -1 T: 27 INTERPRETIVE STATEMENTS: Normal sinus rhythm Normal ECG Compared to ECG 03/14/2017 18:29:16 Left ventricular hypertrophy no longer present Electronically Signed On 03-28-19 07:05:13 CDT by Bernard Giraldo
--- NOTE | 2019-03-28 07:54 | P.HP ---
Certification for Inpatient Patient admitted to: Observation With expected LOS: <2 Midnights Patient will require the following post-hospital care: None Practitioner: I am a practitioner with admitting privileges, knowledge of patient current condition, hospital course, and medical plan of care. Services: Services provided to patient in accordance with Admission requirements found in Title 42 Section 412.3 of the Code of Federal Regulations Patient History Date of Service: 03/28/19 Reason for admission: Abdominal pain/acute diverticulitis History of Present Illness: Patient is a 53-year-old female came into the hospital with lower abdominal pain that is been going on since Thursday. She has had shakes and chills and has been feeling clammy. She came into the emergency room for further evaluation. In the emergency room she was worked up extensively and her workup revealed acute sigmoid diverticulitis. She has been started on IV antibiotic therapy. Allergies oxycodone Allergy (Verified 03/28/19 03:53) Itching Home Medications: Metformin HCl 500 mg PO BID 03/28/19 - Past Medical/Surgical History Has patient received pneumonia vaccine in the past: No Diabetic: No -: hypertension -: Cholecystectomy -: hysterectomy -: lap band - Family History Father Family History: Reviewed- Non-Contributory - Social History Smoking Status: Never smoker Alcohol use: No CD- Drugs: No Caffeine use: No Place of Residence: Home Review of Systems 10-point ROS is otherwise unremarkable Physical Examination - Vital Signs Temperature: 98.7 F Blood Pressure: 121/65 Pulse: 83 Respirations: 18 Pulse Ox (%): 95 - Physical Exam General: Alert, In no apparent distress, Oriented x3 HEENT: Atraumatic, PERRLA, Mucous membr. moist/pink, EOMI, Sclerae nonicteric Neck: Supple, 2+ carotid pulse no bruit, No LAD, Without JVD or thyroid abnormality Respiratory: Clear to auscultation bilaterally, Normal air movement Cardiovascular: Regular rate/rhythm, Normal S1 S2, No murmurs Gastrointestinal: Hypoactive, No rebound, No guarding, Distended, Tenderness Musculoskeletal: No clubbing, No swelling, No tenderness Integumentary: No rashes Neurological: Normal gait, Normal speech, Normal strength at 5/5 x4 extr, Normal tone, Sensation intact, Cranial nerves 3-12 intact, Normal affect Lymphatics: No axilla or inguinal lymphadenopathy - Studies Laboratory Data (last 24 hrs) 03/27/19 22:00: PT 12.4, INR 1.05 03/27/19 22:00: WBC 8.0, Hgb 13.3, Hct 39.2, Plt Count 206 03/27/19 22:00: Sodium 141, Potassium 3.9, BUN 12, Creatinine 0.81, Glucose 91, Magnesium 1.9, Total Bilirubin 0.6, AST 10 L, ALT 18, Alkaline Phosphatase 93, Lipase 89 Assessment & Plan - Problems (Diagnosis) (1) Diverticulitis of sigmoid colon Current Visit: Yes Status: Acute (2) Abdominal pain Current Visit: Yes Status: Acute (3) HTN (hypertension) Current Visit: Yes Status: Acute - Plan 1. Continue with IV hydration 2. Continue with IV antibiotics 3. Continue with pain control 4. NPO 5. General surgery consultation; outpatient colonoscopy in 6-12 weeks 6. Serial H&H, and we will monitor CBC, BMP, LFTs and lipase along with electrolytes. 7. GI and DVT prophylaxis Discharge Plan: Home Plan to discharge in: 48 Hours - Advance Directives Does patient have a Living Will: No Does patient have a Durable POA for Healthcare: No - Code Status/Comfort Care Code Status Assessed: Yes Code Status: Full Code Critical Care: No Time Spent Managing PTS Care (In Minutes): 45
[2019-03-28] MEDS: METFORMIN HCL 500 MG TAB PO SCH ×2 (08:00→16:38)
[2019-03-28] MEDS: MORPHINE 2 MG/ML SYR IV PRN ×3 (08:01→19:15)
[2019-03-28] MEDS: ONDANSETRON 4 MG/2 ML VIAL IV PRN ×2 (08:01→14:07)
[2019-03-28] MEDS: METRONIDAZOLE 500mg IVPB 500 MG/100 ML BAG IV SCH ×2 (08:02→16:37)
[2019-03-28] MEDS: Levofloxacin500mg IV 500 MG/100 ML BAG IV SCH (08:02)
--- NOTE | 2019-03-28 10:25 | RAD REPORT ---
EXAM DESCRIPTION: Abdomen Pelvis W Contrast CLINICAL HISTORY: ABD PAIN COMPARISON: None. TECHNIQUE: CT ABDOMEN PELVIS WITH IV CONTRAST on 03/27/2019 9:14 PM CDT FINDINGS: Liver is fatty in attenuation. Cholecystectomy was performed. Gastric banding was performe d. Hysterectomy was performed. There is moderate to severe distal colonic diverticulosis of proximal sigmoid colon with surrounding inflammation. There is no extraluminal free air. Appendix is normal. IMPRESSION: Proximal sigmoid acute diverticulitis. Electronically signed by: Eriberto Pyle MD 03/28/2019 12:21 AM CDT Due to temporary technical issues with the PACS/Fluency reporting system, reports are being signed by the in house radiologist as a courtesy to ensure prompt reporting. The interpreting radiologist is f ully responsible for the content of the report.
[2019-03-28] MEDS ORDERED: D50W 25 GM/50 ML SYRINGE IV PRN (16:07)
[2019-03-28] MEDS ORDERED: GLUCAGON 1 MG/VIAL IM PRN (16:07)
[2019-03-28] MEDS ORDERED: TRAMADOL HCL 50 MG TAB PO PRN (16:07)
--- NOTE | 2019-03-28 16:07 | P.PN ---
Subjective Date of Service: 03/28/19 Primary Care Provider: Dr. Alanis Chief Complaint: Abdominal pain/acute diverticulitis Subjective: Improving Physical Examination - Vital Signs Temperature: 98.9 F Blood Pressure: 119/65 Pulse: 89 Respirations: 18 Pulse Ox (%): 97 - Physical Exam General: Alert, In no apparent distress, Oriented x3, Cooperative HEENT: Atraumatic Neck: Supple Respiratory: Clear to auscultation bilaterally, Normal air movement Cardiovascular: Normal pulses, Regular rate/rhythm Gastrointestinal: Normal bowel sounds, Soft and benign, Non-distended, Tenderness (Pain to the abdomen improved) Neurological: Normal speech, Normal strength at 5/5 x4 extr, Normal tone, Normal affect - Studies Laboratory Data (last 24 hrs) 03/27/19 22:00: PT 12.4, INR 1.05 03/27/19 22:00: WBC 8.0, Hgb 13.3, Hct 39.2, Plt Count 206 03/27/19 22:00: Sodium 141, Potassium 3.9, BUN 12, Creatinine 0.81, Glucose 91, Magnesium 1.9, Total Bilirubin 0.6, AST 10 L, ALT 18, Alkaline Phosphatase 93, Lipase 89 Medications List Reviewed: Yes Assessment & Plan Discharge Plan: Home Plan to discharge in: 24 Hours Physician Review Additional Text: Impression: Sigmoid diverticulitis Diabetes mellitus type 2 Obesity, BMI 48 Plan: Sigmoid diverticulitis: Continue with IV antibiotic therapy and fluids. Will continue to reassess. Will provide medication for pain. Will advance diet as tolerated. Encourage ambulation. Anticipate discharge in the next 24-48 hr. Will provide DVT prophylaxis. Diabetes mellitus type 2: Restart home medication. Will monitor Accu-Cheks. Obesity, BMI 48: Address lifestyle modification education. Time Spent Managing Pts Care (In Minutes): 55
[2019-03-28] MEDS ORDERED: INSULIN -REGULAR HUMAN 50 UNIT/0.5 ML ML SQ SCH (16:30)
[2019-03-28] MEDS: ENOXAPARIN 30 MG/0.3 ML SQ SCH (16:38)
[2019-03-29] MEDS: METRONIDAZOLE 500mg IVPB 500 MG/100 ML BAG IV SCH ×3 (00:46→16:57)
[2019-03-29] MEDS: MORPHINE 2 MG/ML SYR IV PRN ×3 (00:52→11:45)
[2019-03-29 04:52] LABS: Absolute Lymphocytes (CBC) 1.7 K/uL (0.7-4.9); Absolute Monocytes 0.8 K/uL (0.1-1.3); Absolute Neutrophil 6.3 K/uL (1.8-8.0); Basophils % 0.5 % (0-1.3); Eosinophils % 0.9 % (0-4.4); Hematocrit 36.1 % (36.0-45.0); Lymphocytes % 18.7 % (15.3-44.8); MPV 11.4 fL (7.6-11.3); Monocytes % 9.3 % (3.3-12.3); RBC Red Blood Cell Count 3.98 M/uL (3.86-4.86)
[2019-03-29 05:17] LABS: ALT/SGPT 16 U/L (12-78); AST/SGOT 9 U/L (15-37); Albumin 2.8 g/dL (3.4-5.0); Alkaline Phosphatase 86 U/L (45-117); BUN Blood Urea Nitrogen 6 mg/dL (7-18); Bicarbonate 27 mmol/L (21-32); Bilirubin Total 0.6 mg/dL (0.2-1.0); Glucose Level 94 mg/dL (74-106); Magnesium 1.9 mg/dL (1.8-2.4); Potassium 3.8 mmol/L (3.5-5.1); Protein, Total 6.6 g/dL (6.4-8.2); Sodium Level 141 mmol/L (136-145)
[2019-03-29] MEDS: NA CHLORIDE 0.9% 1,000 ML IV SCH (06:27)
[2019-03-29] MEDS: METFORMIN HCL 500 MG TAB PO SCH ×2 (09:52→16:58)
[2019-03-29] MEDS: Levofloxacin500mg IV 500 MG/100 ML BAG IV SCH (11:00)
--- NOTE | 2019-03-29 12:31 | P.DS ---
Admission Date: 03/28/19 Discharge Date: 03/29/19 Primary Care Provider: Dr. Alanis Disposition: ROUTINE DISCHARGE Discharge Condition: GOOD Reason for Admission: Abdominal pain/acute diverticulitis Consultations: Surgery-Dr. Briggs Procedures: CT scan: COMPARISON: None. TECHNIQUE: CT ABDOMEN PELVIS WITH IV CONTRAST on 03/27/2019 9:14 PM CDT FINDINGS: Liver is fatty in attenuation. Cholecystectomy was performed. Gastric banding was performed. Hysterectomy was performed. There is moderate to severe distal colonic diverticulosis of proximal sigmoid colon with surrounding inflammation. There is no extraluminal free air. Appendix is normal. IMPRESSION: Proximal sigmoid acute diverticulitis. Medical Problem List: Sigmoid diverticulitis Obesity, BMI 48 Brief History of Present Illness: 53-year-old female presented emergency room with abdominal pain. Patient found to have sigmoid diverticulitis. Patient was admitted for treatment. Hospital Course: Patient presented with sigmoid diverticulitis. Patient did well with IV antibiotic therapy and fluids. Surgery consulted. No surgical intervention was required. Patient reports history of colonoscopy recently showing diverticulosis. At discharge patient without significant abdominal pain. Patient tolerating her diet. At discharge patient will continue with a GI soft diet. Patient will continue with Cipro 500 mg 1 pill twice daily and Flagyl 500 mg 3 times a day for a total of 10 days. Recommend to follow up with GI in 2-4 weeks to follow up this hospitalization. Patient will likely require colonoscopy in 6 weeks to further evaluate. Patient with obesity. BMI 48. Patient currently seen by bariatric surgery. Patient plans to have surgery in the near future. Patient currently takes Glucophage. She may continue with her medication. Vital Signs/Physical Exam: Temp Pulse Resp BP Pulse Ox 98.8 F 88 18 138/66 96 03/29/19 08:00 03/29/19 08:00 03/29/19 08:00 03/29/19 08:00 03/29/19 08:00 General: Alert, In no apparent distress, Oriented x3, Cooperative HEENT: Atraumatic Neck: Supple Respiratory: Clear to auscultation bilaterally, Normal air movement Cardiovascular: Normal pulses, Regular rate/rhythm Gastrointestinal: Normal bowel sounds, Soft and benign, Non-distended, No tenderness, No masses, No rebound, No guarding Musculoskeletal: No erythema, No tenderness, No warmth Integumentary: No tenderness/swelling, No erythema, No warmth, No cyanosis Neurological: Normal speech, Normal strength at 5/5 x4 extr, Normal tone, Normal affect Laboratory Data at Discharge: WBC 8.9 K/uL (4.3-10.9) 03/29/19 04:19 Hgb 12.1 g/dL (12.0-15.0) 03/29/19 04:19 Hct 36.1 % (36.0-45.0) 03/29/19 04:19 Plt Count 178 K/uL (152-406) 03/29/19 04:19 PT 12.4 SECONDS (9.5-12.5) 03/27/19 22:00 INR 1.05 03/27/19 22:00 Sodium 141 mmol/L (136-145) 03/29/19 04:19 Potassium 3.8 mmol/L (3.5-5.1) 03/29/19 04:19 BUN 6 mg/dL (7-18) L 03/29/19 04:19 Creatinine 0.79 mg/dL (0.55-1.3) 03/29/19 04:19 Glucose 94 mg/dL (74-106) 03/29/19 04:19 Magnesium 1.9 mg/dL (1.8-2.4) 03/29/19 04:19 Total Bilirubin 0.6 mg/dL (0.2-1.0) 03/29/19 04:19 AST 9 U/L (15-37) L 03/29/19 04:19 ALT 16 U/L (12-78) 03/29/19 04:19 Alkaline Phosphatase 86 U/L (45-117) 03/29/19 04:19 Lipase 89 U/L (73-393) 03/27/19 22:00 Home Medications: Metformin HCl 500 mg PO BID 03/28/19 Ciprofloxacin HCl [Cipro 500 MG Tablet] 500 mg PO BID #20 tab 03/29/19 metroNIDAZOLE [Flagyl] 500 mg PO Q8H #30 tablet 03/29/19 New Medications: Ciprofloxacin HCl [Cipro 500 MG Tablet] 500 mg PO BID #20 tab metroNIDAZOLE [Flagyl] 500 mg PO Q8H #30 tablet Patient Discharge Instructions: 1. Patient will need to follow up the PCP within 1 week to follow up this hospitalization. 2. Patient presented with sigmoid diverticulitis. Patient did well with IV antibiotic therapy and fluids. Surgery consulted. No surgical intervention was required. Patient reports history of colonoscopy recently showing diverticulosis. At discharge patient without significant abdominal pain. Patient tolerating her diet. At discharge patient will continue with a GI soft diet. Patient will continue with Cipro 500 mg 1 pill twice daily and Flagyl 500 mg 3 times a day for a total of 10 days. Recommend to follow up with GI in 2-4 weeks to follow up this hospitalization. Patient will likely require colonoscopy in 6 weeks to further evaluate. 3. Patient with obesity. BMI 48. Patient currently seen by bariatric surgery. Patient plans to have surgery in the near future. Patient currently takes Glucophage. She may continue with her medication. Diet: GI soft diet Activity: Ad lucas Time spent managing pt's care (in minutes): 55
[2019-03-29] MEDS: NACHLORIDE 0.45% 1,000 ML IV SCH (15:28)
[2019-03-29] MEDS: ENOXAPARIN 30 MG/0.3 ML SQ SCH (16:59)
[2019-03-30] MEDS: METRONIDAZOLE 500mg IVPB 500 MG/100 ML BAG IV SCH ×2 (00:43→08:04)
[2019-03-30] MEDS: NACHLORIDE 0.45% 1,000 ML IV SCH (06:47)
[2019-03-30] MEDS: Levofloxacin500mg IV 500 MG/100 ML BAG IV SCH (08:04)
[2019-03-30] MEDS: METFORMIN HCL 500 MG TAB PO SCH (08:04)
[2019-03-30 09:07] VITALS: BP 136/60; TEMP 97.6
--- NOTE | 2019-03-30 09:50 | P.PN ---
Subjective Date of Service: 03/29/19 Primary Care Provider: Dr. Alanis Chief Complaint: Abdominal pain/acute diverticulitis Subjective: Improving (tolerated diet, improved bowel function, pain improved, but not completely resolved) Physical Examination - Vital Signs Temperature: 97.6 F Blood Pressure: 136/60 Pulse: 84 Respirations: 18 Pulse Ox (%): 99 - Physical Exam General: Alert, In no apparent distress, Cooperative Gastrointestinal: Soft and benign, Non-distended, No ascites, No masses, No rebound, No guarding, Other (mild LLQ TTP on deep palpation only) - Studies Microbiology Data (last 24 hrs): 03/27/19 21:46 Clean Catch Urine [place] Count - Final BETWEEN 10,000 & 100,000 CFU/ML 03/27/19 21:46 Clean Catch Urine - Final MIXED [place]. Medications List Reviewed: Yes Assessment And Plan - Current Problems (Diagnosis) (1) Diverticulitis of sigmoid colon Current Visit: Yes Status: Acute Plan: - IV hydration - electrolyte correction - continue antibiotic coverage - serial exams - advance to low residue diet - no surgical intervention needed at this time Physician Review Additional Text: Impression: Sigmoid diverticulitis Diabetes mellitus type 2 Obesity, BMI 48 Plan: Sigmoid diverticulitis: Continue with IV antibiotic therapy and fluids. Will continue to reassess. Will provide medication for pain. Will advance diet as tolerated. Encourage ambulation. Anticipate discharge in the next 24-48 hr. Will provide DVT prophylaxis. Diabetes mellitus type 2: Restart home medication. Will monitor Accu-Cheks. Obesity, BMI 48: Address lifestyle modification education.
--- NOTE | 2019-03-30 10:06 | P.PN ---
Subjective Date of Service: 03/30/19 Primary Care Provider: Dr. Alanis Chief Complaint: Abdominal pain/acute diverticulitis Subjective: Improving (tolerating diet, normal bowel function, pain resolved) Physical Examination - Vital Signs Temperature: 97.6 F Blood Pressure: 136/60 Pulse: 84 Respirations: 18 Pulse Ox (%): 99 - Physical Exam General: Alert, In no apparent distress, Cooperative Gastrointestinal: Soft and benign, Non-distended, No ascites, No tenderness, No masses, No rebound, No guarding - Studies Microbiology Data (last 24 hrs): 03/27/19 21:46 Clean Catch Urine Craig Count - Final BETWEEN 10,000 & 100,000 CFU/ML 03/27/19 21:46 Clean Catch Urine - Final MIXED KYREE. Medications List Reviewed: Yes Assessment And Plan - Current Problems (Diagnosis) (1) Diverticulitis of sigmoid colon Current Visit: Yes Status: Acute Plan: - IV hydration - electrolyte correction - continue antibiotic coverage - serial exams - advance to low residue diet - no surgical intervention needed at this time - ok to DC from surgical standpoint - follow up with Dr. Diaz ( surgeon who performed colonoscopy 2 weeks ago) - patient has appointment this week with above surgeon Physician Review Additional Text: Impression: Sigmoid diverticulitis Diabetes mellitus type 2 Obesity, BMI 48 Plan: Sigmoid diverticulitis: Continue with IV antibiotic therapy and fluids. Will continue to reassess. Will provide medication for pain. Will advance diet as tolerated. Encourage ambulation. Anticipate discharge in the next 24-48 hr. Will provide DVT prophylaxis. Diabetes mellitus type 2: Restart home medication. Will monitor Accu-Cheks. Obesity, BMI 48: Address lifestyle modification education.
--- NOTE | 2019-03-30 15:21 | CON ---
Date of Consultation: 03/28/2019 Brief History Of Present Illness: The patient is a 53-year-old female, who came to the hospital with lower abdominal pain that began several days before on Thursday approximately. She h ad shakes and chills and has been feeling somewhat clammy. She states that the pain was similar to p ain before she had in the past, but was told she has simply had a urinary tract infection. She went to the ER recently and was discharged home, after being told, she had a urinary tract infection. How ever, she returns now with the above-stated complaints, stating that this feels similar, although leticia ewhat more intense in the left lower quadrant. Past Medical History: Significant for hypertension, morbid obesity. Past Surgical History: Includes a cholecystectomy, hysterectomy and lap-band. Allergies: TO OXYCODONE. Home Medications: Include metformin. Social History: She denies smoking, alcohol, recreational drug use from a social history standpoint. Review of Systems: A 10-point review of systems other than HPI, denies. Physical Examination: Vital Signs: At the time of my examination, her BMI is 48.2. Blood pressure 122/65, pulse is 86, re spiratory rate 20, temperature is 97.5. General: She is awake, alert, oriented. Psychiatric: She is appropriate, conversive. HEENT: She is normocephalic. Sclerae are anicteric. Mucous membranes are moist. Oropharynx is margarette ar. Neck: Supple. No JVD. Chest: Normal expansion and excursion. Cardiovascular: Regular rate and rhythm. Pulmonary: Clear to auscultation bilaterally. Abdomen: Soft with mild left lower quadrant tenderness to palpation. No rebound. No guarding. No focal peritonitis. Extremities: No clubbing, cyanosis, or edema. Laboratory Data: Reveals a white blood cell count of 8.0, hemoglobin 13.3, hematocrit of 39.2, plate lets are 206. Neutrophils are normal at 56%. Her PT was 12.4, INR 1.05. Sodium 141, potassium 3.9, chloride 107, carbon dioxide 27, BUN 12, creatinine 0.8, glucose is 91, calcium 8.9, magnesium 1.9. Total bilirubin 0.6, direct component 0.2, AST 10, ALT 18, alkaline phosphatase is 93. Her lipase i s 89. UA showed trace blood and 1+ leukocyte esterase. She had a CT scan performed of the abdomen a nd pelvis, which is officially read on 03/27/2019 as proximal sigmoid acute diverticulitis. There is moderate to severe distal colonic diverticulosis of the proximal sigmoid colon with surrounding infl ammation. There is no extraluminal air. Appendix is normal. Assessment And Plan: This is a 53-year-old female, who comes in with a non-complicated acute diverti culitis of the sigmoid colon. 1.IV fluid hydration. 2.Antibiotic coverage. 3.Serial abdominal exams. 4.The patient will have a colonoscopy within the last month she states, which showed only simple laila yps and mild diverticulosis. As such, she should follow up her master [employer] after discharge to discuss these findings. Continue antibiotics as an outpatient after she is bridged. 5.Advanced diet to a low residue diet. I have explained the risks, benefits, and alternatives of th e above stated plan. The patient agrees to proceed as indicated. RHINA/GENEVA Voice ID: [id number] Report ID: [id number]
== END 2019-03-30 13:00 | disposition home or self-care (01) ==
LOC: ER 20:55 → ERHOLD 03-28 01:40 → 2ND 03-28 03:08
PROVIDERS: ADMIT Hospitalist; ATTEND Hospitalist
DX: K57.32 Diverticulitis of large intestine without perforation or abscess without bleeding (principal); I10 Essential (primary) hypertension; Z98.84 Bariatric surgery status; E11.9 Type 2 diabetes mellitus without complications; E66.9 Obesity, unspecified; Z68.42 Body mass index [BMI] 45.0-49.9, adult
CPT/HCPCS: 96365; 96367; 93005; 87088; 85025 ×2; 87086; 80048; 36415 ×3; 83735 ×3; 85610; 80076; 81003; 83036; 84484; 83690; 80053; 83880; 74177; 71045; 96375; 99285; Q9967; J2270 ×6; J0696; J7030 ×5; J2405 ×3; J0744; G0378 ×2; J1650

== ENCOUNTER 2020-09-14 00:23 | Emergency (ER) | payer MEDICARE, OTHER ==
--- OUTSIDE RECORDS SUMMARY | 2020-09-14 00:25 | XMS REPORT | Clinical Summary ---
:1965 Author Organization [facility] [employer] Address [address] [place] [address] Care Team Providers Name Role Phone Perla Diehl MD Primary Care Provider Allergies Active Allergy Reactions Severity Noted Date Comments Oxycodone 06/05/2016 Medications Not on file Active Problems Problem Noted Date Asthma Overview: In remission Hypertension Surgical History Surgery Date Site/Laterality Comments CHOLECYSTECTOMY ROTATOR CUFF REPAIR Right TUBAL LIGATION HYSTERECTOMY HERNIA REPAIR LAPAROSCOPIC GASTRIC BANDING Medical History Medical History Date Comments Morbid obesity (HCC) Asthma Hypertension Migraines Family History Medical History Relation Name Comments Cancer Father Heart attack Maternal Grandfather Leukemia Maternal Grandmother Gout Mother Relation Name Status Comments Father Maternal Grandfather Maternal Grandmother Mother Social History Tobacco Use Types Packs/Day Years Used Date Never Smoker Alcohol Use Drinks/Week oz/Week Comments Yes social Sex Assigned at Date Recorded Not on file Last Filed Vital Signs Not on file Plan of Treatment Health Maintenance Due Date Last Done Comments CERVICAL CANCER SCREENING 1985 BREAST CANCER SCREENING 2014 COLONOSCOPY SCREENING 2014 SHINGLES VACCINES (#1) 2014 INFLUENZA VACCINE 06/30/2020 Results Not on fileafter 09/14/2019 Advance Directives For more information, please contact: [phone] Type Date Recorded 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
[2020-09-14 02:17] LABS: Absolute Lymphocytes (CBC) 2.2 K/uL (0.7-4.9); Basophils % 0.5 % (0-1.3); Hematocrit 39.4 % (36.0-45.0); Lymphocytes % 20.1 % (15.3-44.8); MPV 10.5 fL (7.6-11.3)
[2020-09-14] MEDS ORDERED: CIPROFLOXACIN 400mg IV 0 MG/0 ML BAG IV ONE (02:24)
[2020-09-14] MEDS ORDERED: ONDANSETRON 4 MG/2 ML VIAL ONE (02:24)
[2020-09-14] MEDS ORDERED: NA CHLORIDE 0.9% 1,000 ML ONE (02:24)
[2020-09-14] MEDS ORDERED: MORPHINE 2 MG/ML SYR ONE (02:24)
[2020-09-14] MEDS ORDERED: METRONIDAZOLE 500mg IVPB 500 MG/100 ML BAG IV ONE (02:24)
[2020-09-14 02:31] LABS: ALT/SGPT 24 U/L (12-78); AST/SGOT 15 U/L (15-37); Albumin 3.3 g/dL (3.4-5.0); Alkaline Phosphatase 99 U/L (45-117); BUN Blood Urea Nitrogen 14 mg/dL (7-18); Bicarbonate 29 mmol/L (21-32); Bilirubin Direct < 0.1 mg/dL (0-0.2); Bilirubin Total 0.2 mg/dL (0.2-1.0); Glucose Level 109 mg/dL (74-106); Lipase 132 U/L (73-393); Protein, Total 7.6 g/dL (6.4-8.2); Sodium Level 143 mmol/L (136-145)
[2020-09-14] MEDS ORDERED: LORazepam 2 MG/ML VIAL ONE (02:34)
[2020-09-14 03:15] LABS: Urine Blood NEGATIVE (NEG); Urine Glucose NEGATIVE (NEG); Urine Protein NEGATIVE (NEG); Urine Specific Gravity 1.025 (1.005-1.030); Urine pH 6.5 (5.0-7.0)
--- NOTE | 2020-09-14 03:37 | ER ---
Nurse's Notes [facility] Name: Kecia Moreno Age: 54 yrs Sex: Female : 1965 Arrival Date: 09/14/2020 Time: 00:26 Bed 6 Private MD: Diagnosis: Abdominal tenderness;Obesity, unspecified;Diverticular disease of intestine-per history Presentation: 09/14 01:00 Chief complaint: Patient states: LLQ pain that started yesterday morning. Pt denies wh diarrhea, fever,nausea or vomiting. Coronavirus screen: Client denies travel out of the [place] in the last 14 days. At this time, the client does not indicate any symptoms associated with coronavirus-19. Ebola Screen: Patient negative for fever greater than or equal to 101.5 degrees Fahrenheit, and additional compatible Ebola Virus Disease symptoms Patient denies exposure to infectious person. Initial Sepsis Screen: Does the patient meet any 2 criteria? No. Patient's initial sepsis screen is negative. Does the patient have a suspected source of infection? Yes: Acute abdominal pain. Risk Assessment: Do you want to hurt yourself or someone else? Patient reports no desire to harm self or others. Onset of symptoms was September 14, 2020. 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 - Social history:: Smoking status: Patient uses alcohol, occasionally. Patient/guardian denies using. - Family history:: not pertinent. Screenin:24 Abuse screen: Denies threats or abuse. Denies injuries from another. Nutritional screening: No deficits noted. Tuberculosis screening: No symptoms or risk factors identified. Fall Risk None identified. Assessment: 01:48 General: Appears in no apparent distress. Behavior is calm, cooperative, appropriate for age. Pain: Complains of pain in left lower quadrant Pain does not radiate. Pain currently is 5 out of 10 on a pain scale. Quality of pain is described as crampy, Pain began 1 day ago. Neuro: Level of Consciousness is awake, alert, obeys commands, Oriented to person, place, time, situation, Appropriate for age. Cardiovascular: Heart tones S1 S2. Respiratory: Airway is patent Respiratory effort is even, unlabored, Respiratory pattern is regular, symmetrical, Breath sounds are clear bilaterally. GI: Abdomen is round non-distended, Bowel sounds present X 4 quads. Abd is soft Abd is non tender. GI: Reports lower abdominal pain. : No signs and/or symptoms were reported regarding the genitourinary system. EENT: No signs and/or symptoms were reported regarding the EENT system. Derm: Skin is intact, is healthy with good turgor, Skin is pink, warm \T\ dry. normal. Musculoskeletal: Circulation, motion, and sensation intact. 02:58 Reassessment: Patient is alert, oriented x 3, equal unlabored respirations, skin bb warm/dry/pink. pt in CT scan refuses scan and transported back to room via stretcher by this RN. Vital Signs: 01:25 BP 154 / 106; Pulse 100; Resp 18; Temp 98.9; Pulse Ox 100% ; Weight 142.88 kg; Height 5 wh ft. 5 in. (165.10 cm); 03:00 BP 151 / 98; Pulse 96; Resp 16; Temp 98; Pulse Ox 100% ; rv 04:00 BP 145 / 96; Pulse 91; Resp 15; Pulse Ox 100% on R/A; rv 01:25 Body Mass Index 52.42 (142.88 kg, 165.10 cm) ED Course: 00:26 Patient arrived in ED. cf2 00:28 Lm Shannon MD is Attending Physician. micaela 00:50 Micky Fried is Primary Nurse. 01:22 Triage completed. 01:26 Patient has correct armband on for positive identification. Bed in low position. Call light in reach. Side rails up X 1. Pulse ox on. NIBP on. 01:49 Arm band placed on right wrist. wh 01:49 Missed attempt(s): 20 gauge in right antecubital area. Bleeding controlled, band aid wh applied, catheter tip intact. 02:00 Inserted saline lock: 20 gauge in left antecubital area, using aseptic technique. rv 03:36 Aren Briggs MD is Referral Physician. micaela 04:02 No provider procedures requiring assistance completed. IV discontinued, intact, rv bleeding controlled, No redness/swelling at site. Pressure dressing applied. Administered Medications: 02:00 Drug: NS 0.9% 1000 ml Route: IV; Rate: 1 bolus; Site: left antecubital; rv 04:04 Follow up: IV Status: Completed infusion; IV Intake: 200ml rv 02:15 Drug: Zofran (Ondansetron) 4 mg Route: IVP; Site: right antecubital; rv 04:01 Follow up: Response: No adverse reaction rv 02:30 Drug: Ativan 1 mg Route: IVP; Site: left antecubital; rv 04:02 Follow up: Response: No adverse reaction rv 02:31 Drug: morphine 2 mg Route: IVP; Site: right antecubital; rv 04:01 Follow up: Response: No adverse reaction rv 03:32 Not Given (Duplicate Order): Cipro 400 mg 200 ml IVPB once over 60 mins micaela 03:32 Not Given (Duplicate Order): Flagyl 500 mg 100 ml IVPB at 200 ml/hr once over 30 mins micaela 04:01 Drug: Cipro 500 mg Route: PO; rv 04:02 Follow up: Response: Medication administered at discharge. rv 04:01 Drug: Flagyl 500 mg Route: PO; rv 04:02 Follow up: Response: Medication administered at discharge. rv Intake: 04:04 IV: 200ml; Total: 200ml. rv Outcome: 03:37 Discharge ordered by . micaela 04:02 Discharged to home ambulatory. rv 04:02 Condition: good 04:02 Discharge instructions given to patient, Instructed on discharge instructions, follow up and referral plans. medication usage, Demonstrated understanding of instructions, follow-up care, medications, Prescriptions given X 3. 04:03 Patient left the ED. rv Signatures: Lm Shannon MD MD cha Ballard, Brenda, RN RN Micky Armstrong Ronaldo RN RN Denis Kimball2
--- NOTE | 2020-09-14 03:37 | EDPHYS ---
Physician Documentation [facility] Name: Kecia Moreno Age: 54 yrs Sex: Female : 1965 Arrival Date: 09/14/2020 Time: 00:26 Bed 6 Private MD: [place] Physician Lm Shannon HPI: 09/14 01:01 This 54 yrs old Black Female presents to ER via Unassigned with complaints of Abdominal micaela Pain. 01:01 The patient presents with abdominal pain in the lower abdomen, in the left lower micaela quadrant. Onset: The symptoms/episode began/occurred 2 day(s) ago. The symptoms do not radiate. Associated signs and symptoms: none. The symptoms are described as constant, crampy. Modifying factors: The symptoms are alleviated by nothing, the symptoms are aggravated by nothing. Severity of pain: At its worst the pain was moderate in the emergency department the pain is unchanged. The patient has not experienced similar symptoms in the past. 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 - Social history:: Smoking status: Patient uses alcohol, occasionally. Patient/guardian denies using. - Family history:: not pertinent. ROS: 01:01 Constitutional: Negative for fever, chills, and weight loss, Eyes: Negative for injury, micaela pain, redness, and discharge, ENT: Negative for injury, pain, and discharge, Neck: Negative for injury, pain, and swelling, Cardiovascular: Negative for chest pain, palpitations, and edema, Respiratory: Negative for shortness of breath, cough, wheezing, and pleuritic chest pain, Back: Negative for injury and pain, : Negative for injury, bleeding, discharge, and swelling, MS/Extremity: Negative for injury and deformity, Skin: Negative for injury, rash, and discoloration, Neuro: Negative for headache, weakness, numbness, tingling, and seizure. 01:01 Abdomen/GI: Positive for abdominal pain, of the right lower quadrant and left lower quadrant. Exam: 01:01 Constitutional: This is a well developed, well nourished patient who is awake, alert, micaela and in no acute distress. Head/Face: Normocephalic, atraumatic. Eyes: Pupils equal round and reactive to light, extra-ocular motions intact. Lids and lashes normal. Conjunctiva and sclera are non-icteric and not injected. Cornea within normal limits. Periorbital areas with no swelling, redness, or edema. ENT: Nares patent. No nasal discharge, no septal abnormalities noted. Tympanic membranes are normal and external auditory canals are clear. Oropharynx with no redness, swelling, or masses, exudates, or evidence of obstruction, uvula midline. Mucous membranes moist. Neck: Trachea midline, no thyromegaly or masses palpated, and no cervical lymphadenopathy. Supple, full range of motion without nuchal rigidity, or vertebral point tenderness. No Meningismus. Chest/axilla: Normal chest wall appearance and motion. Nontender with no deformity. No lesions are appreciated. Cardiovascular: Regular rate and rhythm with a normal S1 and S2. No gallops, murmurs, or rubs. Normal PMI, no JVD. No pulse deficits. Respiratory: Lungs have equal breath sounds bilaterally, clear to auscultation and percussion. No rales, rhonchi or wheezes noted. No increased work of breathing, no retractions or nasal flaring. Back: No spinal tenderness. No costovertebral tenderness. Full range of motion. Skin: Warm, dry with normal turgor. Normal color with no rashes, no lesions, and no evidence of cellulitis. MS/ Extremity: Pulses equal, no cyanosis. Neurovascular intact. Full, normal range of motion. Neuro: Awake and alert, GCS 15, oriented to person, place, time, and situation. Cranial nerves II-XII grossly intact. Motor strength 5/5 in all extremities. Sensory grossly intact. Cerebellar exam normal. Normal gait. Psych: Awake, alert, with orientation to person, place and time. Behavior, mood, and affect are within normal limits. 01:01 Abdomen/GI: Inspection: abdomen appears normal, Bowel sounds: normal, Palpation: mild abdominal tenderness, moderate abdominal tenderness, in the left lower quadrant, Liver: no appreciated palpable abnormalities, Hernia: not appreciated. 03:33 Abdomen/GI: reevaluation no pain, no guarding, no rebound , no rash. [facility] Vital Signs: 01:25 BP 154 / 106; Pulse 100; Resp 18; Temp 98.9; Pulse Ox 100% ; Weight 142.88 kg; Height 5 wh ft. 5 in. (165.10 cm); 03:00 BP 151 / 98; Pulse 96; Resp 16; Temp 98; Pulse Ox 100% ; rv 04:00 BP 145 / 96; Pulse 91; Resp 15; Pulse Ox 100% on R/A; rv 01:25 Body Mass Index 52.42 (142.88 kg, 165.10 cm) wh MDM: 00:47 Patient medically screened. micaela 01:02 Differential diagnosis: cholecystitis, Cholelithiasis, non-specific abd pain, micaela pancreatitis, Perf. Duodenal Ulcer, Perf. Gastric Ulcer, urinary tract infection. Data reviewed: vital signs, nurses notes, lab test result(s), radiologic studies, CT scan. Data interpreted: ekg monitor: rate is 80 beats/min, rhythm is regular, Pulse oximetry: on room air is 100 %. Test interpretation: by ED physician or midlevel provider: plain radiologic studies. Counseling: I had a detailed discussion with the patient and/or guardian regarding: the historical points, exam findings, and any diagnostic results supporting the discharge/admit diagnosis, lab results, radiology results. 03:38 ED course: pt much improved, hx diverticulosis, no pain now, completely benign. micaela 09/14 00:29 Order name: Basic Metabolic Panel [facility] 09/14 00:29 Order name: CBC with Diff [facility] 09/14 00:29 Order name: Hepatic Function [facility] 09/14 00:29 Order name: Lipase [facility] 09/14 00:29 Order name: Basic Metabolic Panel; Complete Time: 02:57 EDMS 09/14 00:29 Order name: CBC with Automated Diff; Complete Time: 02:57 EDMS 09/14 00:29 Order name: Liver (Hepatic) Function; Complete Time: 02:57 EDMS 09/14 00:29 Order name: Lipase; Complete Time: 02:57 EDMS 09/14 03:13 Order name: Urine Dipstick--Ancillary (enter results); Complete Time: 03:32 tt3 09/14 00:29 Order name: IV Saline Lock; Complete Time: 02:55 micaela 09/14 00:29 Order name: Labs collected and sent; Complete Time: 02:55 [facility] 09/14 00:29 Order name: Urine Dipstick-Ancillary (obtain specimen) micaela Administered Medications: 02:00 Drug: NS 0.9% 1000 ml Route: IV; Rate: 1 bolus; Site: left antecubital; rv 04:04 Follow up: IV Status: Completed infusion; IV Intake: 200ml rv 02:15 Drug: Zofran (Ondansetron) 4 mg Route: IVP; Site: right antecubital; rv 04:01 Follow up: Response: No adverse reaction rv 02:30 Drug: Ativan 1 mg Route: IVP; Site: left antecubital; rv 04:02 Follow up: Response: No adverse reaction rv 02:31 Drug: morphine 2 mg Route: IVP; Site: right antecubital; rv 04:01 Follow up: Response: No adverse reaction rv 03:32 Not Given (Duplicate Order): Cipro 400 mg 200 ml IVPB once over 60 mins micalea 03:32 Not Given (Duplicate Order): Flagyl 500 mg 100 ml IVPB at 200 ml/hr once over 30 mins micaela 04:01 Drug: Cipro 500 mg Route: PO; rv 04:02 Follow up: Response: Medication administered at discharge. rv 04:01 Drug: Flagyl 500 mg Route: PO; rv 04:02 Follow up: Response: Medication administered at discharge. rv Disposition: 09/14/20 03:37 Discharged to Home. Impression: Abdominal tenderness, Obesity, unspecified, Diverticular disease of intestine - per history. - Condition is Stable. - Discharge Instructions: Abdominal Pain, Adult, Obesity, Adult, Abdominal Pain, Adult, [id number], Obesity, Adult, [id number]. - Prescriptions for Bentyl 20 mg Oral Tablet - take 1 tablet by ORAL route every 6 hours As needed; 20 tablet. Flagyl 500 mg Oral Tablet - take 1 tablet by ORAL route every 6 hours for 7 days; 28 tablet. Cipro 500 mg Oral Tablet - take 1 tablet by ORAL route every 12 hours for 7 days; 14 tablet. - Medication Reconciliation Form, Thank You Letter, Antibiotic Education, Prescription Opioid Use form. - Follow up: Private Physician; When: 2 - 3 days; Reason: Recheck today's complaints, Continuance of care, Re-evaluation by your physician. Follow up: Aren Briggs MD; When: 2 - 3 days; Reason: Recheck today's complaints, Re-evaluation by your physician. - Problem is new. - Symptoms have improved. Signatures: Dispatcher [employer] [facility] Lm Shannon MD MD cha Habalo, Winsy wh Vicente, Ronaldo, RN RN rv Corrections: (The following items were deleted from the chart) 03:48 00:30 Abdomen Pelvis W Con+CT.RAD.BRZ ordered. [facility] 04:03 03:37 09/14/2020 03:37 Discharged to Home. Impression: Abdominal tenderness; Obesity, rv unspecified; Diverticular disease of intestine - per history. Condition is Stable. Forms are Medication Reconciliation Form, Thank You Letter, Antibiotic Education, Prescription Opioid Use. Follow up: Private Physician; When: 2 - 3 days; Reason: Recheck today's complaints, Continuance of care, Re-evaluation by your physician. Follow up: Aren Briggs; When: 2 - 3 days; Reason: Recheck today's complaints, Re-evaluation by your physician. Problem is new. Symptoms have improved. micaela
[2020-09-14] MEDS ORDERED: metroNIDAZOLE 500 MG TABLET ONE (04:04)
[2020-09-14] MEDS ORDERED: CIPROFLOXACIN HCL 500 MG TAB ONE (04:04)
[2020-09-14 04:26] VITALS: O2SAT 100
[2020-09-14 04:27] VITALS: TEMP 98
[2020-09-14 04:30] VITALS: BP 145/96
== END 2020-09-14 04:03 | disposition home or self-care (01) ==
LOC: ER 00:23
DX: K57.90 Diverticulosis of intestine, part unspecified, without perforation or abscess without bleeding (principal); E66.9 Obesity, unspecified; I10 Essential (primary) hypertension; Z88.5 Allergy status to narcotic agent
CPT/HCPCS: 85025; 80048; 36415; 82565; 80076; 81003; 83690; 99284; J2270; J7030; J2405; J0744

== ENCOUNTER 2021-06-22 00:20 | Emergency (ER) | payer OTHER ==
--- NOTE | 2021-06-22 05:51 | EDPHYS ---
Physician Documentation [facility] Name: Kecia Moreno Age: 55 yrs Sex: Female : 1965 Arrival Date: 06/22/2021 Time: 00:21 Bed 15 Private MD: Alessia Aguilar ED Physician Isael Hernandez HPI: 06/22 05:10 This 55 yrs old Black Female presents to ER via Ambulatory with complaints of Sore mh7 Throat, Difficulty Swallowing. 05:10 The patient presents with sore throat. The patient describes throat pain as constant. mh7 Onset: The symptoms/episode began/occurred 4 day(s) ago. Severity of symptoms: At their worst the symptoms were moderate, 3 day(s) ago, in the emergency department the symptoms are unchanged. Modifying factors: The symptoms are alleviated by nothing, the symptoms are aggravated by swallowing. Associated signs and symptoms: Pertinent positives: Sore throat Pertinent negatives chest pain, chills, cough, diarrhea, dysphagia, earache, fever, flu-like symptoms, headache, nausea, rhinorrhea, shortness of breath, vomiting. The patient has experienced similar episodes in the past, several times. Historical: - Allergies: 00:36 Oxycodone; kg - Home Meds: 00:36 lisinopril 20 mg Oral tab 1 tab once daily [Active]; kg - PMHx: 00:36 Hypertension; kg - PSHx: 00:36 Hystrectomy; Right rotator cuff sx; lap band; kg - Immunization history:: Adult Immunizations not up to date, Client reports having NOT received the Covid vaccine. - Social history:: Smoking status: Patient denies any tobacco usage or history of. ROS: 05:10 Constitutional: Negative for fever, chills, and weight loss, Eyes: Negative for injury, mh7 pain, redness, and discharge, Neck: Negative for injury, pain, and swelling, Cardiovascular: Negative for chest pain, palpitations, and edema, Respiratory: Negative for shortness of breath, cough, wheezing, and pleuritic chest pain, Abdomen/GI: Negative for abdominal pain, nausea, vomiting, diarrhea, and constipation, Back: Negative for injury and pain, : Negative for injury, bleeding, discharge, and swelling, MS/Extremity: Negative for injury and deformity, Skin: Negative for injury, rash, and discoloration, Neuro: Negative for headache, weakness, numbness, tingling, and seizure, Psych: Negative for depression, anxiety, suicide ideation, homicidal ideation, and hallucinations, Allergy/Immunology: Negative for hives, rash, and allergies, Endocrine: Negative for neck swelling, polydipsia, polyuria, polyphagia, and marked weight changes, Hematologic/Lymphatic: Negative for swollen nodes, abnormal bleeding, and unusual bruising. Exam: 05:10 Constitutional: This is a well developed, well nourished patient who is awake, alert, mh7 and in no acute distress. Head/Face: Normocephalic, atraumatic. Eyes: Pupils equal round and reactive to light, extra-ocular motions intact. Lids and lashes normal. Conjunctiva and sclera are non-icteric and not injected. Cornea within normal limits. Periorbital areas with no swelling, redness, or edema. 05:10 Neck: Trachea midline, no thyromegaly or masses palpated, and no cervical lymphadenopathy. Supple, full range of motion without nuchal rigidity, or vertebral point tenderness. No Meningismus. Chest/axilla: Normal chest wall appearance and motion. Nontender with no deformity. No lesions are appreciated. Cardiovascular: Regular rate and rhythm with a normal S1 and S2. No gallops, murmurs, or rubs. Normal PMI, no JVD. No pulse deficits. Respiratory: Lungs have equal breath sounds bilaterally, clear to auscultation and percussion. No rales, rhonchi or wheezes noted. No increased work of breathing, no retractions or nasal flaring. Abdomen/GI: Soft, non-tender, with normal bowel sounds. No distension or tympany. No guarding or rebound. No evidence of tenderness throughout. Back: No spinal tenderness. No costovertebral tenderness. Full range of motion. Skin: Warm, dry with normal turgor. Normal color with no rashes, no lesions, and no evidence of cellulitis. MS/ Extremity: Pulses equal, no cyanosis. Neurovascular intact. Full, normal range of motion. Neuro: Awake and alert, GCS 15, oriented to person, place, time, and situation. Cranial nerves II-XII grossly intact. Motor strength 5/5 in all extremities. Sensory grossly intact. Cerebellar exam normal. Normal gait. Psych: Awake, alert, with orientation to person, place and time. Behavior, mood, and affect are within normal limits. 05:10 ENT: Mouth: is normal, Posterior pharynx: Airway: normal, Tonsils: bilaterally enlarged, with erythema, with exudate, Uvula: normal, swelling, is not appreciated, erythema, that is moderate, exudate, that is moderate, peritonsillar mass, is not appreciated, pooling of secretions, is not appreciated, Dental exam: normal, Voice: is normal. Vital Signs: 00:33 BP 154 / 100; Pulse 84; Resp 20; Temp 98.4; Pulse Ox 100% on R/A; Weight 150.14 kg (M); kg Height 5 ft. 5 in. (165.10 cm); Pain 10/10; 04:02 BP 158 / 95; Pulse 88; Resp 16 S; Temp 98.8; Pulse Ox 97% on R/A; bb 05:10 BP 157 / 116; Pulse 86; Resp 16 S; Pulse Ox 99% on R/A; bb 00:33 Body Mass Index 55.08 (150.14 kg, 165.10 cm) kg MDM: 05:47 Differential diagnosis: group A strep tonsillitis, pharyngitis, tonsillitis, upper mh7 respiratory infection, viral syndrome. Data reviewed: vital signs, nurses notes, lab test result(s), strep-negative. Data interpreted: Pulse oximetry: on room air is 99 %. Interpretation: normal. Counseling: I had a detailed discussion with the patient and/or guardian regarding: the historical points, exam findings, and any diagnostic results supporting the discharge/admit diagnosis, lab results, the need for outpatient follow up, to return to the emergency department if symptoms worsen or persist or if there are any questions or concerns that arise at home. Response to treatment: the patient's symptoms have mildly improved after treatment. 05:50 Patient medically screened. mh7 06/22 00:39 Order name: Strep kg 06/22 00:39 Order name: Group A Streptococcus Rapid Sc; Complete Time: 05:14 EDMS 06/22 00:58 Order name: Throat Culture EDMS Administered Medications: 05:47 Drug: Ibuprofen 800 mg Route: PO; bb 06:04 Follow up: Response: Medication administered at discharge. ea Disposition Summary: 06/22/21 05:50 Discharge Ordered Location: Home [facility] Problem: new [facility] Symptoms: have improved [facility] Condition: Stable [facility] Diagnosis - Tonsillitis [facility] Followup: [facility] - With: Private Physician - When: 1 - 2 days - Reason: Worsening of condition, Recheck today's complaints, Continuance of care, Re-evaluation by your physician Followup: [facility] - With: Cher Donnelly MD - When: 1 - 2 days - Reason: Worsening of condition, Recheck today's complaints Discharge Instructions: - Discharge Summary Sheet [facility] - Tonsillitis, [id number] [facility] Forms: - Medication Reconciliation Form [facility] - Thank You Letter [facility] - Antibiotic Education [facility] - Prescription Opioid Use [facility] Prescriptions: - penicillin V potassium 500 mg Oral tablet - take 1 tablet by ORAL route every 8 hours; 30 tablet; Refills: 0, Product [facility] Selection Permitted - Ibuprofen 800 mg Oral Tablet - take 1 tablet by ORAL route every 8 hours As needed take with food; 15 tablet; [facility] Refills: 0, Product Selection Permitted Signatures: Dispatcher [employer] Елена Maravilla, RN RN Isael Jonas MD MD [facility] Vanessa Roe RN RN Leonor Hickman RN, ea
--- NOTE | 2021-06-22 05:51 | ER ---
Nurse's Notes [facility] Name: Kecia Moreno Age: 55 yrs Sex: Female : 1965 Arrival Date: 06/22/2021 Time: 00:21 Bed 15 Private MD: Alessia Aguilar Diagnosis: Tonsillitis Presentation: 06/22 00:33 Chief complaint: Patient states: Pt stated, "My tonsills are swollen with yellow puss kg on them and it hurts to swallow." Pt denies fever. started Monday 06/18. Coronavirus screen: Client denies travel out of the [place] in the last 14 days. At this time, unable to obtain information related to travel outside the [place] At this time, the client does not indicate any symptoms associated with coronavirus-19. Ebola Screen: Patient negative for fever greater than or equal to 101.5 degrees Fahrenheit, and additional compatible Ebola Virus Disease symptoms Patient denies exposure to infectious person. Patient denies travel to an Ebola-affected area in the 21 days before illness onset. Initial Sepsis Screen: Does the patient meet any 2 criteria? No. Patient's initial sepsis screen is negative. Risk Assessment: Do you want to hurt yourself or someone else? Patient reports no desire to harm self or others. Onset of symptoms was June 18, 2021. 00:33 Method Of Arrival: Ambulatory kg 00:33 Acuity: TAMIKA 4 kg Historical: - Allergies: 00:36 Oxycodone; kg - Home Meds: 00:36 lisinopril 20 mg Oral tab 1 tab once daily [Active]; kg - PMHx: 00:36 Hypertension; kg - PSHx: 00:36 Hystrectomy; Right rotator cuff sx; lap band; kg - Immunization history:: Adult Immunizations not up to date, Client reports having NOT received the Covid vaccine. - Social history:: Smoking status: Patient denies any tobacco usage or history of. Screenin:37 Abuse screen: Denies threats or abuse. Denies injuries from another. Nutritional kg screening: No deficits noted. Tuberculosis screening: No symptoms or risk factors identified. Fall Risk None identified. No fall in past 12 months (0 pts). No secondary diagnosis (0 pts). No IV (0 pts). Ambulatory Aid- None/Bed Rest/Nurse Assist (0 pts). Gait- Normal/Bed Rest/Wheelchair (0 pts) Mental Status- Oriented to own ability (0 pts). Total Feliz Fall Scale indicates No Risk (0-24 pts). Assessment: 00:38 Pain: Complains of pain in neck Pain currently is 10 out of 10 on a pain scale. at kg worst was 10 out of 10 on a pain scale. level that patient reports is acceptable is 3 out of 10 on a pain scale. Quality of pain is described as throbbing. Respiratory: Airway is patent Trachea midline Respiratory effort is. 04:02 General: Appears in no apparent distress. uncomfortable, Behavior is calm, cooperative. bb Pain: Complains of pain in throat. Neuro: Level of Consciousness is awake, alert, obeys commands, Oriented to person, place, time, situation. Cardiovascular: Capillary refill < 3 seconds Patient's skin is warm and dry. Respiratory: Airway is patent Respiratory effort is even, unlabored, Respiratory pattern is regular, Breath sounds are clear bilaterally. GI: No signs and/or symptoms were reported involving the gastrointestinal system. EENT: Throat is reddened has patchy exudate has enlarged tonsils. Derm: Skin is dry, Skin is normal, Skin temperature is warm. Musculoskeletal: Circulation, motion, and sensation intact. 05:09 Reassessment: Patient is alert, oriented x 3, equal unlabored respirations, skin bb warm/dry/pink. pt sitting on side of bed wants to speak to Dr Hernandez. ED provider notified. 06:03 Reassessment: Patient and/or family updated on plan of care and expected duration. Pain ea level reassessed. Patient is alert, oriented x 3, equal unlabored respirations, skin warm/dry/pink. Discharge instruction given to patient verbalized the understanding of instruction. Pt left ED ambulatory tolerating well. Vital Signs: 00:33 BP 154 / 100; Pulse 84; Resp 20; Temp 98.4; Pulse Ox 100% on R/A; Weight 150.14 kg (M); kg Height 5 ft. 5 in. (165.10 cm); Pain 10/10; 04:02 BP 158 / 95; Pulse 88; Resp 16 S; Temp 98.8; Pulse Ox 97% on R/A; bb 05:10 BP 157 / 116; Pulse 86; Resp 16 S; Pulse Ox 99% on R/A; bb 00:33 Body Mass Index 55.08 (150.14 kg, 165.10 cm) kg ED Course: 00:21 Patient arrived in ED. am2 00:21 Alessia Aguilar FNP-C is Private Physician. am2 00:36 Triage completed. kg 00:37 Patient has correct armband on for positive identification. kg 03:52 Leonor Peters, RN is Primary Nurse. ea 05:13 Isael Hernandez MD is Attending Physician. [facility] 05:49 Cher Donnelly MD is Referral Physician. [facility] 06:04 No provider procedures requiring assistance completed. Patient did not have IV access ea during this emergency room visit. Administered Medications: 05:47 Drug: Ibuprofen 800 mg Route: PO; bb 06:04 Follow up: Response: Medication administered at discharge. ea Outcome: 05:50 Discharge ordered by . [facility] 06:04 Discharged to home ambulatory, with family. ea 06:04 Condition: stable 06:04 Discharge instructions given to patient, Instructed on discharge instructions, follow up and referral plans. medication usage, Demonstrated understanding of instructions, follow-up care, medications, Prescriptions given X 2. 06:04 Patient left the ED. ea Signatures: Елена Suero RN Maira Jama 2 Leonor Peters, RN Isael Redman ea, MD MD [facility] Vanessa Roe RN RN kg
[2021-06-22] MEDS ORDERED: IBUPROFEN 400 MG TAB ONE (06:08)
[2021-06-22 06:26] VITALS: TEMP 98.8
[2021-06-22 06:27] VITALS: BP 157/116; O2SAT 99
== END 2021-06-22 06:04 | disposition home or self-care (01) ==
LOC: ER 00:20
DX: J03.90 Acute tonsillitis, unspecified (principal); I10 Essential (primary) hypertension; Z88.5 Allergy status to narcotic agent
CPT/HCPCS: 87070; 87081; 99283

== ENCOUNTER → 2021-07-12 | Day surgery (SDC) | payer OTHER ==
[~2021-07-12] MED LIST: LABETALOL 20 MG/4ML SYRINGE IV ONE; Ringers Lactate 1,000 ML IV ONE
[2021-07-12 08:40] VITALS: BP 183/116; TEMP 97; O2SAT 99
== END ==
LOC: OR 07:22
PROVIDERS: ATTEND Otolaryngology
DX: J03.01 Acute recurrent streptococcal tonsillitis (principal); Z20.822 Contact with and (suspected) exposure to COVID-19; Z53.09 Procedure and treatment not carried out because of other contraindication
CPT/HCPCS: 93005; U0002; J7120